=== PATIENT | female | born 1985 | race Caucasian/White ===

== ENCOUNTER → 2020-12-14 | Day surgery (SDC) | payer OTHER ==
[~2020-12-14] VITALS: Ht 165.1 cm; Wt 99.8 kg
[~2020-12-14] MED LIST: ACETAMINOPHEN325 MG PO; AMOXICILLIN500 MG PO; BENADRYL25 MG PO; BUSPAR5 MG PO; CAMILA0.35 MG PO; COLACE100 M1 PO; FEOSOL325 MG PO; FIBER GUMMIES2 GM PO; FOLIC ACID1 M1 PO; GLUCOPHAGE XR500 MG PO; LEXAPRO 10MG TA10 MG PO; MULTI FOR HER1 EACH PO; PERCOCET 5/3251 TAB PO; SYNTHROID112 MCG PO; VITAMIN D2000 UNI1 PO; ZOFRAN4 MG PO
[2020-12-14 07:09] LABS: HCG (URINE) SCREEN NEGATIVE (NEGATIVE)
== END | disposition home or self-care (01) ==
LOC: FAS 06:29
PROVIDERS: Student in an Organized Health Care Education/Training Program
DX: Z12.11 Encounter for screening for malignant neoplasm of colon (principal); K64.4 Residual hemorrhoidal skin tags; K57.30 Diverticulosis of large intestine without perforation or abscess without bleeding; D64.9 Anemia, unspecified; E03.9 Hypothyroidism, unspecified; E28.2 Polycystic ovarian syndrome; G47.30 Sleep apnea, unspecified; J45.909 Unspecified asthma, uncomplicated; E66.01 Morbid (severe) obesity due to excess calories; F41.9 Anxiety disorder, unspecified; Z68.36 Body mass index [BMI] 36.0-36.9, adult; Z80.0 Family history of malignant neoplasm of digestive organs; Z86.010 Personal history of colon polyps; Z87.891 Personal history of nicotine dependence
CPT/HCPCS: 84703; J2250; J2704; J7120